=== PATIENT | female | born 1970 | race Asian ===

== ENCOUNTER 2016-05-09 19:39 | Outpatient (CLI) | payer BC | END 2016-05-09 21:00 | disposition home or self-care (01) | LOC: RAD 19:39 | DX: M54.2 Cervicalgia (principal); M54.89 Other dorsalgia ==

== ENCOUNTER 2016-10-14 08:08 | Outpatient (CLI) | payer BC | END 2016-10-14 09:40 | disposition home or self-care (01) | LOC: MAMMO 08:08 | DX: Z12.31 Encounter for screening mammogram for malignant neoplasm of breast (principal); Z80.3 Family history of malignant neoplasm of breast; Z80.0 Family history of malignant neoplasm of digestive organs ==

== ENCOUNTER 2017-05-08 15:02 | Outpatient (CLI) | payer OTHER | END 2017-05-08 21:49 | disposition home or self-care (01) | LOC: RAD 15:02 | DX: R76.11 Nonspecific reaction to tuberculin skin test without active tuberculosis (principal); R05 Cough ==

== ENCOUNTER 2017-06-26 10:36 | Outpatient (CLI) | payer BC | END 2017-06-26 21:22 | disposition home or self-care (01) | LOC: RAD 10:36 | DX: M25.551 Pain in right hip (principal); R10.84 Generalized abdominal pain ==

== ENCOUNTER 2018-03-22 16:50 | Outpatient (CLI) | payer OTHER | END 2018-03-22 22:41 | disposition home or self-care (01) | LOC: RAD 16:50 | DX: M79.673 Pain in unspecified foot (principal) ==

== ENCOUNTER 2018-07-18 14:54 | Emergency (ER) | payer OTHER ==
[~2018-07-18] VITALS: Ht 157.5 cm; Wt 92.5 kg
[2018-07-18 15:26] LABS: PLATELET COUNT 187 K/uL (152-353)
[2018-07-18 15:34] LABS: POTASSIUM 3.3 mmol/L (3.6-5.2)
[2018-07-18 16:07] VITALS: BP 143/85; TEMP 98
== END 2018-07-18 16:07 | disposition home or self-care (01) ==
LOC: ED 14:54
PROVIDERS: Emergency Medicine
DX: R51 Headache (principal)
CPT/HCPCS: 80053; 85027; 99283

== ENCOUNTER 2018-10-29 15:15 | Outpatient (CLI) | payer OTHER | END 2018-10-29 20:16 | disposition home or self-care (01) | LOC: RAD 15:15 | DX: R19.7 Diarrhea, unspecified (principal); R10.9 Unspecified abdominal pain ==

== ENCOUNTER 2018-10-31 07:48 | Outpatient (CLI) | payer OTHER | END 2018-10-31 20:07 | disposition home or self-care (01) | LOC: LAB 07:48 | DX: R19.7 Diarrhea, unspecified (principal); R10.9 Unspecified abdominal pain | CPT/HCPCS: 82272 ==

== ENCOUNTER 2018-11-05 07:14 | Outpatient (CLI) | payer OTHER | END 2018-11-05 23:13 | disposition home or self-care (01) | LOC: LABW 07:14 | DX: R19.7 Diarrhea, unspecified (principal); R10.9 Unspecified abdominal pain | CPT/HCPCS: 82272 ==

== ENCOUNTER 2018-11-12 09:31 | Outpatient (CLI) | payer OTHER | END 2018-11-12 20:28 | disposition home or self-care (01) | LOC: LAB 09:31 | DX: R19.7 Diarrhea, unspecified (principal); R10.9 Unspecified abdominal pain | CPT/HCPCS: 82272 ==

== ENCOUNTER 2020-03-22 13:53 | Emergency (ER) | payer BC ==
[~2020-03-22] VITALS: Ht 157.5 cm; Wt 92.5 kg
[2020-03-22] MEDS ORDERED: METO-837 PO (14:03)
[2020-03-22] MEDS ORDERED: GABA300C2 PO (14:03)
[2020-03-22] MEDS ORDERED: TURMERI1 PO (14:03)
[2020-03-22 14:36] LABS: PLATELET COUNT 152 K/uL (152-353)
[2020-03-22 15:15] LABS: POTASSIUM 3.7 mmol/L (3.6-5.2); SODIUM 140 mmol/L (136-145)
[2020-03-22 15:22] LABS: PARTIAL THROMBOPLASTIN TIME 22.7 SECONDS (24.5-33.6)
[2020-03-22 16:15] VITALS: BP 155/77; TEMP 97.5
== END 2020-03-22 16:15 | disposition home or self-care (01) ==
LOC: ED 13:56
PROVIDERS: Hospitalist
DX: S09.8XXA Other specified injuries of head, initial encounter (principal); M54.5 Low back pain; W18.39XA Other fall on same level, initial encounter; Y92.89 Other specified places as the place of occurrence of the external cause
CPT/HCPCS: 80053; 80320; 82550; 83880; 84484; 85027; 85610; 85730; 93005; 96374; 99284; J1885

== ENCOUNTER 2020-06-24 13:09 | Outpatient (CLI) | payer BC ==
[~2020-06-24 13:09] MED LIST: GABA300C2 PO; METO-837 PO; TURMERI1 PO
== END 2020-06-24 21:15 | disposition home or self-care (01) ==
LOC: MAMMO 13:09
PROVIDERS: ATTEND Family Medicine
DX: Z12.31 Encounter for screening mammogram for malignant neoplasm of breast (principal); Z80.3 Family history of malignant neoplasm of breast

== ENCOUNTER 2021-12-18 12:21 | Outpatient (CLI) | payer BC | END 2021-12-18 20:31 | disposition home or self-care (01) | LOC: RAD 12:21 | PROVIDERS: ATTEND Family Medicine | DX: M54.59 Other low back pain (principal); M25.562 Pain in left knee; M25.552 Pain in left hip ==

== ENCOUNTER 2021-12-28 14:59 | Outpatient (CLI) | payer BC | END 2021-12-28 20:02 | disposition home or self-care (01) | LOC: MAMMO 14:59 | PROVIDERS: ATTEND Family Medicine | DX: Z12.31 Encounter for screening mammogram for malignant neoplasm of breast (principal) ==

== ENCOUNTER 2022-06-28 16:46 | Outpatient (CLI) | payer OTHER ==
[2022-06-28 17:17] LABS: PLATELET COUNT 162 K/uL (152-353)
[2022-06-28 17:39] LABS: POTASSIUM 3.3 mmol/L (3.6-5.2)
== END 2022-06-28 20:55 | disposition home or self-care (01) ==
LOC: LABW 16:46
PROVIDERS: ATTEND Family Medicine
DX: R00.2 Palpitations (principal); M25.511 Pain in right shoulder; M25.512 Pain in left shoulder; R53.83 Other fatigue; F41.8 Other specified anxiety disorders; R31.9 Hematuria, unspecified; M54.59 Other low back pain
CPT/HCPCS: 36415; 80053; 81000; 82306; 82550; 83036; 83735; 84439; 84443; 84484; 84550; 85027

== ENCOUNTER 2022-06-29 08:37 | Outpatient (CLI) | payer OTHER | END 2022-06-29 20:34 | disposition home or self-care (01) | LOC: LABW 08:37 | PROVIDERS: ATTEND Family Medicine | DX: R00.2 Palpitations (principal); I10 Essential (primary) hypertension; R53.83 Other fatigue; F41.8 Other specified anxiety disorders; E78.49 Other hyperlipidemia; R73.9 Hyperglycemia, unspecified; K21.9 Gastro-esophageal reflux disease without esophagitis; M25.512 Pain in left shoulder; E55.9 Vitamin D deficiency, unspecified | CPT/HCPCS: 36415; 80061 ==